=== PATIENT | female | born 1975 | race African-American/Black ===

== ENCOUNTER → 2020-08-15 | Emergency (ER) | payer SELFPAY ==
[~2020-08-15] VITALS: Ht 167.6 cm; Wt 71.3 kg
[~2020-08-15] MED LIST: HYDR-2155 PO
[2020-08-15 16:12] VITALS: BP 141/89
--- NOTE | 2020-08-15 16:41 | RAD ---
Exam: Right foot 3 views INDICATION: Dorsal right foot pain TECHNIQUE: Frontal, lateral and oblique views of the right foot Comparisons: None FINDINGS: Bone mineralization is normal. No acute or healed fractures. Soft tissues are unremarkable. Joint [facility] are well-maintained. IMPRESSION: No acute osseous abnormality. Electronically signed by: Fatuma Patricia MD (08/15/2020 4:39 PM) SINGH
--- NOTE | 2020-08-15 17:05 | PHYS DOC ---
Past History Past Medical History: No Pertinent History (JUNE CAMP APRN) Past Surgical History: Cholecystectomy, Gastric Bypass (JUNE CAMP APRN) Alcohol Use: None (JUNE CAMP APRN) General Adult EDM: Chief Complaint: FOOT INJURY PAIN HPI: HPI: Patient is a 44-year-old female who presents with right foot pain. Patient states that she got upset with her fianc and kicked the wall. Patient was able to ambulate on her own. Range of motion intact. Denies taking thing prior to arrival. Denies health history. (JUNE CAMP APRN) Review of Systems: Review of Systems: Constitutional: Denies fever or chills Eyes: Denies change in visual acuity HENT: Denies nasal congestion or sore throat Respiratory: Denies cough or shortness of breath Cardiovascular: Denies chest pain or edema GI: Denies abdominal pain, nausea, vomiting, bloody stools or diarrhea : Denies dysuria Musculoskeletal: Reports right ankle pain Integument: Denies rash Neurologic: Denies headache, focal weakness or sensory changes Endocrine: Denies polyuria or polydipsia Lymphatic: Denies swollen glands Psychiatric: Denies depression or anxiety (JUNE CAMP APRN) Allergies: Allergies: Allergies Coded Allergies Type Severity Reaction Last Updated Verified No Known Drug Allergies 08/15/20 No (JUNE CAMP APRN) Physical Exam: PE: Constitutional: Well developed, well nourished, no acute distress, non-toxic appearance. [] HENT: Normocephalic, atraumatic, bilateral external ears normal, oropharynx moist, no oral exudates, nose normal. [] Eyes: PERRLA, EOMI, conjunctiva normal, no discharge. [] Neck: Normal range of motion, no tenderness, supple, no stridor. [] Cardiovascular:Heart rate regular rhythm, no murmur [] Lungs & Thorax: Bilateral breath sounds clear to auscultation [] Abdomen: Bowel sounds normal, soft, no tenderness, no masses, no pulsatile masses. [] Skin: Warm, dry, no erythema, no rash. [] Back: No tenderness, no CVA tenderness. [] Extremities: Right foot tenderness, ROM intact, no edema. [] Neurologic: Alert and oriented X 3, normal motor function, normal sensory function, no focal deficits noted. [] Psychologic: Affect normal, judgement normal, mood normal. [] (JUNE CAMP APRN) Current Patient Data: Vital Signs: Vital Signs Date Time Temp Pulse Resp B/P (MAP) Pulse Ox O2 Delivery O2 Flow Rate FiO2 08/15/20 16:12 97.9 78 18 141/89 (106) 99 Room Air (JUNE CAMP APRN) EKG: EKG: [] (JUNE CAMP APRN) Radiology/Procedures: Radiology/Procedures: [] (JUNE CAMP APRN) Heart Score: C/O Chest Pain: No Risk Factors: Risk Factors: DM, Current or recent (<one month) smoker, HTN, HLP, family history of CAD, obesity. Risk Scores: Score 0 - 3: 2.5% MACE over next 6 weeks - Discharge Home Score 4 - 6: 20.3% MACE over next 6 weeks - Admit for Clinical Observation Score 7 - 10: 72.7% MACE over next 6 weeks - Early Invasive Strategies (JUNE CAMP APRN) Course & Med Decision Making: Course & Med Decision Making Pertinent Labs and Imaging studies reviewed. (See chart for details) [] Patient presents to the emergency room with right foot pain after kicking a wall. Right foot x-ray ordered. X-rays negative for fracture. Instructed patient to rest, use ice to foot, elevate to help prevent swelling. Take ibuprofen and Tylenol at home for discomfort. Follow-up with PCP for further management. Return to emergency room with worsening symptoms or concerns. Patient is able to bear weight. Range of motion is intact. Pedal pulses intact. (JUNE CAMP APRN) Dragon Disclaimer: Dragon Disclaimer: This electronic medical record was generated, in whole or in part, using a voice recognition dictation system. (JUNE CAMP APRN) Attending Co-Sign The patient was seen and interviewed as well as examined at the bedside. The chart was reviewed. The case was discussed. Agree with the plan of care. (SHONA CONWAY DO) Departure Departure: Impression: Primary Impression: Foot pain, right Disposition: HOME / SELF CARE / HOMELESS Condition: STABLE Referrals: PCP,NO (PCP) Patient Instructions: Foot Contusion, [id number] Additional Instructions: You are seen in the emergency room after injuring her right foot. X-rays negative for fracture. It is important to use ice to foot and elevate elevate to help prevent swelling. Take ibuprofen and Tylenol at home for discomfort. Follow-up with PCP for further management. Return to emergency room with worsening symptoms or concerns. EMERGENCY DEPARTMENT GENERAL DISCHARGE INSTRUCTIONS Thank you for coming to [facility] (ED) today and trusting us with you care. We trust that you had a positivie experience in our Emergency Department. If you wish to speak to the department management, you may call the director at [phone]. YOUR FOLLOW UP INSTRUCTIONS ARE FOLLOWS: 1. Do you have a private Doctor? If you do not have a private doctor, please ask for a resource list of physicians or clinics that may be able to assist you with follow up care. 2. The Emergency Physician has interpreted your x-rays. The X-Ray specialist will also review them. If there is a change in the findings, you will be notified in 48 hours when at all possible. 3. A lab test or culture has been done, your results will be reviewed and you will be notified if you need a change in treatment. ADDITIONAL INSTRUCTIONS AND INFORMATION: 1. Your care today has been supervised by a physician who is specially trained in emergency care. Many problems require more than one evaluation for a complete diagnosis and treatment. We recommend that you schedule your follow up appointment as [place] to ensure complete treatment of you illness or injury. If you are unable to obtain follow up care and continue to have a problem, or if your condition worsens, we recommend that you return to the ED. 2. We are not able to safely determine your condition over the phone nor are we able to give sound medical advice over the phone. For these safety reasons, if you call for medical advice we will ask you to come to the ED for further evaluation. 3. If you have any questions regarding these discharge instructions please call the ED at [phone]. SAFETY INFORMATION: In the interest of safety, wellness, and injury prevention; we encourage you to wear your sealbelt, if you smoke; quite smoking, and we encourage family to use a protective helmet for bicycling and other sporting events that present an increased risk for head injury. IF YOUR SYMPTOMS WORSEN OR NEW SYMPTOMS DEVELOP, OR YOU HAVE CONCERNS ABOUT YOUR CONDITION; OR IF YOUR CONDITION WORSENS WHILE YOU ARE WAITING FOR YOUR FOLLOW UP APPOINTMENT; EITHER CONTACT YOUR PRIMARY CARE DOCTOR, THE PHYSICIAN WHOSE NAME AND NUMBER YOU WERE GIVEN, OR RETURN TO THE ED IMMEDIATELY. Scripts Hydrocodone Bit/Acetaminophen (HYDROCODONE-APAP 5-325 ) 1 Each Tablet 1 TAB PO PRN Q6HRS PRN for PAIN for 3 Days, #6 TAB 0 Refills Prov: JUNE CAMP APRN 08/15/20 JUNE CAMP APRN August 15, 2020 17:05 SHONA CONWAY DO August 18, 2020 08:29
== END ==
LOC: EDSEX 15:53 → ER 15:53
DX: M79.671 Pain in right foot (principal); M25.571 Pain in right ankle and joints of right foot; Z98.84 Bariatric surgery status; W22.01XA Walked into wall, initial encounter; Y93.89 Activity, other specified; Y92.89 Other specified places as the place of occurrence of the external cause; Y99.8 Other external cause status
CPT/HCPCS: 73630; 99283